=== PATIENT | female | born 1950 | race Caucasian/White ===

== ENCOUNTER 2016-07-02 10:51 | Emergency (ER) | payer OTHER ==
[2016-07-02 11:43] LABS: ABSOLUTE NEUTROPHIL COUNT 2.1 K/mm3 (1.8-7.7); BASO % 0.6 % (0.2-1.0); EOS % 0.3 % (0.9-2.9); HEMATOCRIT 39.1 % (37.0-47.0); HEMOGLOBIN 12.8 gm/l (12.0-16.0); IMM NEUT% 0.3 % (0-1); LYMPH # 1.1 (1.0-4.8); LYMPH % 31.5 % (15-45); MEAN CELL VOLUME 90.9 fl (81.0-99.0); MEAN CORPUSCULAR HEMOGLOBIN 29.8 pg (27.0-31.0); MEAN CORPUSCULAR HGB CONC 32.7 g/dl (33.0-37.0); MEAN PLATELET VOLUME 8.9 fl (7.4-10.4); MONO # 0.2 (0.0-0.8); MONO % 6.2 % (4-12); NEUT % 61.1 % (43-75); PLATELET COUNT 330 K/mm3 (130-400); RED CELL DISTRIBUTION WIDTH 12.6 % (11.5-14.5)
--- NOTE | 2016-07-02 11:43 | RAD ---
Name: CHARLEEN CONROY Exam: Two-view chest Comparison: 10/17/2015 Clinical history: Cough Findings: 2 views the chest are submitted. Heart is mildly prominent. Mediastinum and hilar structures are normal. There is no failure, infiltrate, pleural effusion or pneumothorax. There are surgical clips at the gallbladder fossa. Impression: 1. Mild prominence of heart without overt failure 2. Prior cholecystectomy.
[2016-07-02 12:03] LABS: TROPONIN I < 0.01 ng/ml (0.0-0.06)
[2016-07-02 12:04] LABS: ALB/GLOB RATIO 1.6 (>1.0); ALBUMIN 4.2 gm/dL (3.5-5.7); MAGNESIUM 2.1 mg/dL (1.9-2.7)
[2016-07-02 12:07] LABS: CKMB ISOENZYME 0.7 ng/ml (0.6-6.3)
[2016-07-02] MEDS ORDERED: KETOROLAC TROMETHAMINE 30 MG/ML 1 ML VIAL ONE (12:44)
== END 2016-07-02 13:24 | disposition home or self-care (01) ==
LOC: ED 10:51
DX: R07.89 Other chest pain (principal); K21.9 Gastro-esophageal reflux disease without esophagitis; Z79.899 Other long term (current) drug therapy; Z88.1 Allergy status to other antibiotic agents; Z88.8 Allergy status to other drugs, medicaments and biological substances
CPT/HCPCS: 83880; 85025; 82550; 82553; 80053; 83735; 84484; 71020; 99284; 96374; 99283; J1885